=== PATIENT | female | born 1960 | race Caucasian/White ===

== ENCOUNTER 2023-03-12 12:10 | Emergency (ER) | payer OTHER ==
[~2023-03-12] VITALS: Ht 157.5 cm; Wt 63.0 kg
[2023-03-12] MEDS ORDERED: LABETALOL HCL 5 MG/ML 20 ML VIAL IVP PRN ×2 (12:30)
[2023-03-12 12:35] LABS: BASOPHILS % (AUTO) 0.6 % (0.0-2.0); EOSINOPHILS % (AUTO) 1.4 % (1.0-6.0); HEMOGLOBIN 13.7 g/dL (12.0-16.0); LYMPHOCYTES # (AUTO) 0.8 K/uL (1.0-4.8); LYMPHOCYTES % (AUTO) 15.8 % (22.0-44.0); MEAN CORPUSCULAR HEMOGLOBIN 29.5 pg (26.0-34.0); MEAN CORPUSCULAR HGB CONC 33.5 G/dL (31.0-37.0); MEAN CORPUSCULAR VOLUME 88 fL (80-100); MONOCYTES # (AUTO) 0.3 K/uL (0.1-1.0); MONOCYTES % (AUTO) 5.5 % (2.0-9.0); NEUTROPHILS # (AUTO) 3.9 K/uL (1.8-7.7); NEUTROPHILS % (AUTO) 76.7 % (40.0-70.0); PLATELET COUNT (AUTO) 161 K/uL (150-450); RED BLOOD CELL COUNT(AUTO) 4.66 MIL/uL (4.00-5.20); RED CELL DISTRIBUTION WIDTH 14.7 % (11.5-14.5)
[2023-03-12 12:43] LABS: CALCIUM, TOTAL 9.4 mg/dL (8.8-10.5); CREATININE 1.28 mg/dL (0.60-1.30); POTASSIUM 4.1 mmol/L (3.5-5.1)
[2023-03-12 12:49] LABS: ALBUMIN 3.9 g/dL (3.4-5.0); BILIRUBIN,TOTAL 0.5 mg/dL (0.1-1.0); TOTAL PROTEIN, SERUM 7.5 g/dL (6.4-8.2)
[2023-03-12 12:51] LABS: PROTHROMBIN TIME 10.2 SEC (9.4-11.6)
[2023-03-12] MEDS ORDERED: ASPIRIN 81 MG CHEWABLE TABLET PO ONE (13:15)
[2023-03-12] MEDS ORDERED: CLOPIDOGREL BISULFATE 75 MG TABLET PO ONE (14:15)
[2023-03-12 16:09] LABS: COVID AG,FIA SOURCE NASOPHARYNGEAL
[2023-03-12] MEDS ORDERED: LABETALOL HCL 5 MG/ML 20 ML VIAL IVP ONE (19:45)
[2023-03-12] MEDS ORDERED: OXYGEN THERAPY IH SCH (20:00)
[2023-03-12 22:30] VITALS: BP 170/74
== END 2023-03-12 22:49 | disposition short-term general hospital (02) ==
LOC: EMS 12:11
DX: H53.121 Transient visual loss, right eye (principal); G45.9 Transient cerebral ischemic attack, unspecified; I10 Essential (primary) hypertension; Z98.890 Other specified postprocedural states; Z20.822 Contact with and (suspected) exposure to COVID-19
CPT/HCPCS: 99291; 70544; 96374; 70450; 71045; 87426; 80053; 84484; 85025; 85610; 85730; 86850; 86900; 86901; 36415; 70547; 70551; 82948; 93005; 96376; J3490